=== PATIENT | female | born 1980 ===

== ENCOUNTER 2023-09-16 07:59 | Day surgery (SDC) | payer BC, SELFPAY ==
[2023-09-16 08:15] VITALS: BP 163/113; PULSE 66; RESP 18; TEMP 36.2; O2SAT 98; BMI 33.0
[2023-09-16] MEDS: sodium chloride 0.9% 1,000 ML 30 ML IV (08:23)
--- NOTE | 2023-09-16 08:47 | P.ANESASSM_ITS ---
Pre-Anesthetic Assessment Height/Weight: Height 1.73 m Weight 98.43 kg Temp Pulse Resp BP Pulse Ox O2 Del Method 97.1 F L 66 18 163/113 98 Room Air 09/16/23 08:15 09/16/23 08:15 09/16/23 08:15 09/16/23 08:15 09/16/23 08:15 09/16/23 08:15 Preop Diagnosis: screening colonoscopy Operation Date: 09/16/23 09:15 Proposed Procedures p 15140 colon G0121 screen colon A risk Z12.11(Not Applicable) - Femi Giang DO Familial anesthetic complications: None Was Beta Rashard taken within 24 hours: N/A Was Clonidine taken within 24 hours: N/A Last intake: Intake Last Liquid Date 09/15/23 Last Liquid Time 22:00 Last Solid Date 09/14/23 Last Solid Time 23:30 Social No alcohol and No tobacco Exam alert, oriented x 3, clear to auscultation bilaterally and regular rate & rhythm Airway Submandibular: within normal limits Cervical ROM: within normal limits Mallampati: Class II Dentition: chipped Comments: Comments: left upper molar chipped. [place] uuper molar right History/ROS No significant history except as noted Pulmonary None reported CV/HEM Hypertension None reported Hepatic None reported Metabolic None reported Musc/skel None reported Neuropsych Anxiety, Bipolar and Depression Anesthetic Plan ASA status: 2 Anesthesia: MAC Risk of > 500 ml blood loss (7ml/kg in children): No Medications/Allergies Home Medications Medication Instructions Recorded Confirmed Last Taken Type amlodipine 5 mg tablet 5 mg PO DAILY htn #30 tabs 08/19/23 09/14/23 09/15/23 Rx fluoxetine 40 mg capsule 40 mg PO DAILY mental health #30 08/19/23 09/14/23 09/15/23 Rx caps levothyroxine 125 mcg tablet 125 mcg PO DAILY #90 tabs 08/19/23 09/14/23 09/15/23 Rx lorazepam 0.5 mg tablet 0.5 mg PO Q12H PRN anxiety/panic 08/19/23 09/14/23 09/14/23 Rx attacks #30 tabs medroxyprogesterone 10 mg tablet 10 mg PO DAILY PRN irregular 08/19/23 09/14/23 4 Months Ago Rx periods #30 tabs ~05/15/23 meloxicam 15 mg tablet 15 mg PO DAILY arthritis pain #30 08/19/23 09/14/23 09/14/23 Rx tabs Allergies Allergy/AdvReac Type Severity Reaction Status Date / Time codeine Allergy hives Verified 09/14/23 13:09 tessalon Allergy hives Uncoded 09/14/23 13:14 Current Medications Generic Name Dose Route Start Last Admin Trade Name Freq PRN Reason Stop Dose Admin Sodium Chloride 1,000 mls @ 30 mls/hr 09/16/23 08:15 09/16/23 08:23 Sodium Chloride 0.9% IV 09/17/23 08:14 30 mls/hr .Q24H EVERARDO Administration PFSH Anesthesia Medical History Abnormal mammogram, unspecified Colon cancer screening Hypothyroid Depression Anxiety HTN (hypertension) with goal to be determined Osteoarthritis Abnormal menstrual periods Septate uterus Insomnia Surgical History Status post cervical polyp removal Family History Father Diabetes Hypertension Heart disease CHF (congestive heart failure) Mother Diabetes Post traumatic stress disorder (PTSD) Social History Smoking and tobacco/nicotine status: former use of tobacco/nicotine Quit status (tobacco/nicotine): has quit using Alcohol intake: never Substance/Drug Use: current Substance/Drug use frequency: Special occassions/opportunity only Female Reproductive History Date of last menstrual period: 09/07/23 Data Anesthesia Cardiac Studies: No Data to Display
--- NOTE | 2023-09-16 09:20 | W.PM.OPSUD ---
Surgery/Procedure H&P Update DATE OF PROCEDURE: September 16, 2023 DATE H&P PERFORMED: 08/26/23 H&P UPDATE INFORMATION: I have reviewed H&P completed within last 30 days, I have examined patient prior to procedure and No changes to prior documentation PREOP DIAGNOSIS: screening colonoscopy PLANNED PROCEDURE: Operation Date: 09/16/23 09:15 Proposed Procedures p 50115 colon G0121 screen colon A risk Z12.11(Not Applicable) - Femi Giang, DO
[2023-09-16 09:43] VITALS: BP 152/101; PULSE 63; RESP 18; TEMP 36.1; O2SAT 99
[2023-09-16 10:02] VITALS: BP 170/100; PULSE 54; RESP 16; O2SAT 100
--- NOTE | 2023-09-16 10:15 | ANE.PACU2 ---
Inpatient post-anesthesia follow up: Airway intact: Yes Vital signs: Temperature 97.0 F Pulse Rate 54 Respiratory Rate 16 Blood Pressure 170/100 Pulse Oximetry 100 Oxygen Delivery Me thod Room Air Oxygen Flow Rate Fraction of Inspir ed Oxygen Hydration adequate: Yes Nausea and vomiting: No Pain level: 1 Mental status: Baseline
[2023-09-17 13:12] LABS: OR HCG Qualitative Urine Negative (Negative)
== END 2023-09-16 10:19 | disposition home or self-care (01) ==
PROVIDERS: Anesthesiology; PCP Family Medicine Adult Medicine; Visit Provider Surgery
PROC: 0DJD8ZZ Inspection of Lower Intestinal Tract, Via Natural or Artificial Opening Endoscopic (ICD-10-PCS; CPT 45378; principal; 2023-09-16 09:15)
DX: Z12.11 Encounter for screening for malignant neoplasm of colon (principal); K64.8 Other hemorrhoids; D12.0 Benign neoplasm of cecum; I10 Essential (primary) hypertension; E03.9 Hypothyroidism, unspecified; Z87.891 Personal history of nicotine dependence
CPT/HCPCS: 45385; 81025; 84703; 88305; J2704; J7030

== ENCOUNTER 2023-11-03 09:06 | Outpatient (CLI) | payer BC, SELFPAY ==
--- NOTE | 2023-11-03 09:16 | MM_ITS ---
WS: [id number] Bilateral diagnostic 3D tomosynthesis digital mammogram, 11/03/2023 Clinical Data: ABNORMAL MAMMO Comparison: None. Findings: No spiculated masses nor clustered calcifications are seen. There is asymmetric tissue in the upper o uter quadrant of the right breast. There are no secondary signs of carcinoma. Impression: 1. Asymmetric tissue in upper outer quadrant of the right breast. 2. Negative for clustered calcifications. 3. Current examination will be reviewed when old mammograms from [place], [place] arrive. 4. Recommend yearly screening mammograms MM/[place] [id number] BIRADS: 2-Benign FOLLOW UP: See Report The CAD specifications checker was used.
== END 2023-11-03 09:07 | disposition home or self-care (01) ==
LOC: RAD 09:06
PROVIDERS: PCP Family Medicine Adult Medicine; Visit Provider Family Medicine Adult Medicine
DX: R92.8 Other abnormal and inconclusive findings on diagnostic imaging of breast (principal); N64.89 Other specified disorders of breast
CPT/HCPCS: 77062; G0279

== ENCOUNTER → 2024-10-28 12:14 | Outpatient (BNVA) | payer BC, SELFPAY | PROVIDERS: PCP Family Medicine; Visit Provider Family Medicine | DX: I10 Essential (primary) hypertension (principal) | CPT/HCPCS: 80053; 80061; 82043; 85025 ==

== ENCOUNTER → 2024-11-25 11:53 | Outpatient (BNVA) | payer BC, SELFPAY | PROVIDERS: PCP Family Medicine; Visit Provider Family Medicine | DX: Z01.419 Encounter for gynecological examination (general) (routine) without abnormal findings (principal); E03.9 Hypothyroidism, unspecified | CPT/HCPCS: 84439; 84443; 87624 ==

== ENCOUNTER 2024-11-30 10:29 | Outpatient (CLI) | payer BC, SELFPAY ==
--- NOTE | 2024-11-30 10:40 | MM_ITS ---
WS: [id number] BILATERAL SCREENING DIGITAL TOMOSYNTHESIS MAMMOGRAM WITH CAD HISTORY: screening COMPARISON: 11/03/2023, 07/29/2021 Bilateral CC and MLO views with tomosynthesis and synthetic mammography submitted. Computer aided detection analyzed. Breast composition: The breasts are heterogeneously dense, which may obscure small masses. No suspicious masses, microcalcifications or architectural distortion. Dense asymmetries and scattered nodules are stable. No suspicious grouping of calcifications. MM/MM [facility] tomosynthesis [id number] IMPRESSION: BI-RADS: 2 - Benign FOLLOW UP: 1 Year Follow-up
== END 2024-11-30 10:30 | disposition home or self-care (01) ==
LOC: RAD 10:30
PROVIDERS: PCP Family Medicine; Visit Provider Family Medicine
DX: Z12.31 Encounter for screening mammogram for malignant neoplasm of breast (principal); R92.333 Mammographic heterogeneous density, bilateral breasts; N64.89 Other specified disorders of breast
CPT/HCPCS: 77063; 77067

== ENCOUNTER 2025-02-06 20:00 | Outpatient (CLI) | payer BC, SELFPAY | END 2025-02-06 20:01 | disposition home or self-care (01) | LOC: SLEEP 02-07 00:59 | PROVIDERS: PCP Family Medicine; Visit Provider Internal Medicine Pulmonary Disease | DX: G47.33 Obstructive sleep apnea (adult) (pediatric) (principal) | CPT/HCPCS: 95810 ==

== ENCOUNTER → 2025-03-23 11:35 | Outpatient (BNVA) | payer BC, SELFPAY | PROVIDERS: PCP Family Medicine; Visit Provider Family Medicine | DX: E03.9 Hypothyroidism, unspecified (principal) | CPT/HCPCS: 84439; 84443 ==

== ENCOUNTER 2025-04-18 15:47 | Outpatient (CLI) | payer BC, SELFPAY ==
--- NOTE | 2025-04-18 15:58 | XRR_ITS ---
PROCEDURE INFORMATION: Exam: XR Right Hip Exam date and time: 04/18/2025 4:02 PM Age: 45 years old Clinical indication: Right hip; RT hip pain in the groin region x few years; Additional info: Right hip pain TECHNIQUE: Imaging protocol: Radiologic exam of the right hip. Views: 1 view hip with pelvis when performed. COMPARISON: No relevant prior studies available. FINDINGS: Bones/joints: Unremarkable. No acute fracture. Soft tissues: Unremarkable. XR/XR hip RT 2-3V wo/w pel* [id number] IMPRESSION: No acute findings.
== END 2025-04-18 15:48 | disposition home or self-care (01) ==
PROVIDERS: PCP Family Medicine; Visit Provider Family Medicine
DX: M16.11 Unilateral primary osteoarthritis, right hip (principal)
CPT/HCPCS: 73502